=== PATIENT | female | born 1940 | race Hispanic/Latino ===

== ENCOUNTER 2017-10-09 12:24 | Observation (INO) | payer MEDICARE ==
[~2017-10-09] VITALS: Ht 162.6 cm; Wt 56.4 kg
[2017-10-09] MEDS ORDERED: CEFEPIME HCL 1 GM VIAL ONE (13:10)
[2017-10-09] MEDS ORDERED: ENOXAPARIN SODIUM 30 MG/0.3 ML SQ ONE (13:29)
[2017-10-09] MEDS ORDERED: METHYLPREDNISOLONE SOD SUCC 40MG/ML 1ML ONE (13:29)
[2017-10-09 13:30] LABS: CREATININE 0.9 mg/dL (0.5-1.5); POTASSIUM 4.6 mmol/L (3.5-5.1)
[2017-10-09 13:35] LABS: ALBUMIN 2.7 g/dL (3.5-5.0); BILIRUBIN,DIRECT 0.1 mg/dL (0.0-0.3); BILIRUBIN,TOTAL 0.4 mg/dL (0.2-1.0); TOTAL PROTEIN, SERUM 6.9 g/dL (6.0-8.3)
[2017-10-09 13:39] LABS: BASOPHILS % (AUTO) 0.8 % (0.0-5.0); EOSINOPHILS % (AUTO) 1.9 % (0.0-8.0); HEMATOCRIT 34.8 % (36-48); MEAN CORPUSCULAR HEMOGLOBIN 28.3 pg (27.0-33.0); MEAN CORPUSCULAR VOLUME 85.8 fL (79-99); MONOCYTES % (AUTO) 8.6 % (3.0-13.0); NEUTROPHILS % (AUTO) 66.7 % (40.0-77.0); PLATELET COUNT (AUTO) 517 K/uL (130-400); RED BLOOD CELL COUNT(AUTO) 4.05 MIL/uL (4.00-5.50); RED CELL DISTRIBUTION WIDTH 15.9 % (11.0-15.5); WHITE BLOOD COUNT (AUTO) 12.6 K/uL (4.8-10.8)
[2017-10-09] MEDS ORDERED: IPRATROPIUM/ALBUTEROL SULFATE 3 ML SOLUTION IH ONE (13:39)
[2017-10-09] MEDS ORDERED: ONDANSETRON HCL 4 MG/2 ML VIAL IVP PRN (13:45)
[2017-10-09] MEDS ORDERED: ACETAMINOPHEN 325 MG TAB PO PRN (13:45)
[2017-10-09] MEDS ORDERED: 1/2 NORMAL SALINE 1,000 ML IV ONE (15:41)
[2017-10-09] MEDS ORDERED: ACETYLCYSTEINE 20% 200MG/ML 4ML VIAL ONE (18:24)
[2017-10-09] MEDS: IPRATROPIUM/ALBUTEROL SULFATE 3 ML SOLUTION IH SCH ×2 (18:29→23:25)
[2017-10-09] MEDS: ACETYLCYSTEINE 20% 200MG/ML 4ML VIAL IH SCH ×2 (18:29→23:25)
[2017-10-09] MEDS ORDERED: IPRATROPIUM 0.5 MG/2.5 ML INH IH ONE (18:39)
[2017-10-09] MEDS ORDERED: ALBUTEROL SULFATE 0.083% 2.5 MG/3 ML INH IH ONE (18:40)
[2017-10-09] MEDS: FAMOTIDINE 20MG TAB 20 MG TAB PO SCH (21:00)
[2017-10-09] MEDS: CEFEPIME HCL 1 GM VIAL IVP SCH (22:00)
[2017-10-09] MEDS: METHYLPREDNISOLONE SOD SUCC 125MG/2ML VIAL IVP SCH (22:00)
[2017-10-09] MEDS ORDERED: DEXTROSE 50%-WATER 50 ML DISP.SYRIN IV PRN (22:45)
[2017-10-09] MEDS ORDERED: GLUCAGON 1MG KIT 1 MG ML IM PRN (22:45)
[2017-10-09] MEDS ORDERED: 1/2 NORMAL SALINE 1,000 ML IV SCH (22:45)
[2017-10-09 23:43] VITALS: BP 155/67
[2017-10-10] MEDS ORDERED: MONT10TA21 PO (00:20)
[2017-10-10] MEDS ORDERED: FENT100PAT TD ×2 (00:20→03:29)
[2017-10-10] MEDS ORDERED: RANI150C4 PO (00:20)
[2017-10-10] MEDS ORDERED: PANT40TA25 PO (00:20)
[2017-10-10] MEDS ORDERED: FAMO-136 PO (00:20)
[2017-10-10] MEDS ORDERED: INSLAN SQ (00:20)
[2017-10-10] MEDS ORDERED: LUBI24CA2 PO (00:20)
[2017-10-10] MEDS ORDERED: METO-408 PO (00:20)
[2017-10-10] MEDS ORDERED: PRED20TA3 PO (00:20)
[2017-10-10] MEDS ORDERED: NAPR-1023 PO (00:20)
[2017-10-10] MEDS ORDERED: INSU200I SQ (00:20)
[2017-10-10] MEDS ORDERED: VALS160T2 PO (00:20)
[2017-10-10] MEDS ORDERED: DIGO-44 PO (00:20)
[2017-10-10] MEDS ORDERED: MIRALAX PO (00:20)
[2017-10-10] MEDS ORDERED: ALEN70TA47 PO (00:20)
[2017-10-10] MEDS ORDERED: BUPR-87 PO (00:20)
[2017-10-10] MEDS ORDERED: EZET10 PO (00:20)
[2017-10-10] MEDS ORDERED: DULA1.5P SQ (00:20)
[2017-10-10] MEDS ORDERED: METF500T6 PO (00:20)
[2017-10-10] MEDS ORDERED: HYDR-4381 PO (00:26)
[2017-10-10] MEDS ORDERED: HYDROCODONE/ACETAMINOPHEN 10/325 MG TAB PO PRN (00:30)
[2017-10-10] MEDS ORDERED: FENTANYL 100 MCG/HR PATCH TD SCH ×2 (00:30→16:00)
[2017-10-10] MEDS: METHYLPREDNISOLONE SOD SUCC 125MG/2ML VIAL IVP SCH ×2 (03:45→09:21)
[2017-10-10] MEDS: CEFEPIME HCL 1 GM VIAL IVP SCH ×2 (03:45→09:20)
[2017-10-10 04:00] VITALS: BP 121/59
[2017-10-10 05:02] LABS: HEMATOCRIT 34.1 % (36-48); MEAN CORPUSCULAR HEMOGLOBIN 28.6 pg (27.0-33.0); MEAN CORPUSCULAR HGB CONC 33.3 g/dL (32.0-36.0); PLATELET COUNT (AUTO) 561 K/uL (130-400); RED BLOOD CELL COUNT(AUTO) 3.97 MIL/uL (4.00-5.50); RED CELL DISTRIBUTION WIDTH 15.9 % (11.0-15.5); WHITE BLOOD COUNT (AUTO) 14.3 K/uL (4.8-10.8)
[2017-10-10 05:31] LABS: ALBUMIN 2.5 g/dL (3.5-5.0); BILIRUBIN,DIRECT 0.1 mg/dL (0.0-0.3); BILIRUBIN,TOTAL 0.3 mg/dL (0.2-1.0); CREATININE 1.3 mg/dL (0.5-1.5); POTASSIUM 4.1 mmol/L (3.5-5.1); TOTAL PROTEIN, SERUM 6.9 g/dL (6.0-8.3)
[2017-10-10] MEDS: INSULIN LISPRO 100 UNIT/ML 3ML SQ SCH ×3 (06:37→17:24)
[2017-10-10] MEDS: ACETYLCYSTEINE 20% 200MG/ML 4ML VIAL IH SCH ×2 (06:44→13:20)
[2017-10-10] MEDS: IPRATROPIUM/ALBUTEROL SULFATE 3 ML SOLUTION IH SCH ×2 (06:44→13:20)
[2017-10-10] MEDS ORDERED: ALENDRONATE SODIUM 35 MG TAB PO SCH ×2 (07:30→07:54)
[2017-10-10 08:00] VITALS: BP 134/75
[2017-10-10] MEDS ORDERED: GUAIFENESIN-CODEINE 5 ML SYRUP PO PRN (08:00)
[2017-10-10] MEDS ORDERED: BUPROPION HCL 150 MG TABLET.SA PO SCH (09:00)
[2017-10-10] MEDS ORDERED: LOSARTAN 100 MG TABLET PO SCH (09:00)
[2017-10-10] MEDS ORDERED: ENOXAPARIN SODIUM 30 MG/0.3 ML SQ SCH (09:00)
[2017-10-10] MEDS ORDERED: EZETIMIBE 10 MG TAB PO SCH (09:00)
[2017-10-10] MEDS ORDERED: FAMOTIDINE 20MG TAB 20 MG TAB PO SCH ×2 (09:00)
[2017-10-10] MEDS ORDERED: METOPROLOL TARTRATE 25 MG TAB PO SCH (09:00)
[2017-10-10] MEDS ORDERED: PANTOPRAZOLE SODIUM 40 MG TABLET.DR PO SCH (09:00)
[2017-10-10] MEDS ORDERED: NAPROXEN 500 MG TABLET PO SCH (09:00)
[2017-10-10] MEDS: FAMOTIDINE 20MG TAB 20 MG TAB PO SCH (09:00)
[2017-10-10] MEDS ORDERED: POLYETHYLENE GLYCOL 3350 17 GM POWD.PACK PO SCH (09:00)
[2017-10-10] MEDS: LUBIPROSTONE 24 MCG CAP PO SCH ×2 (09:23→17:15)
[2017-10-10] MEDS: METFORMIN HCL 500 MG TABLET PO SCH ×2 (09:23→17:15)
[2017-10-10 12:00] VITALS: BP 127/57
[2017-10-10 16:00] VITALS: BP 133/69
[2017-10-10] MEDS ORDERED: FENTANYL 25 MCG/HR PATCH TD SCH (16:00)
[2017-10-10] MEDS ORDERED: MONTELUKAST SODIUM 10 MG TAB PO SCH (21:00)
[2017-10-10] MEDS ORDERED: DIGOXIN 125 MCG TABLET PO SCH (21:00)
[2017-10-10] MEDS ORDERED: INSULIN GLARGINE 100 UNITS/ML 10 ML VIAL SQ SCH (21:00)
[2017-10-13] MEDS ORDERED: Dulaglutide (Trulicity) 1.5 MG SQ SCH (09:00)
== END 2017-10-10 18:30 ==
LOC: EDH 12:24 → EDHIP 12:54 → 3AH 22:01
PROVIDERS: ADMIT Internal Medicine; ATTEND Internal Medicine
DX: J44.1 Chronic obstructive pulmonary disease with (acute) exacerbation (principal); F03.90 Unspecified dementia, unspecified severity, without behavioral disturbance, psychotic disturbance, mood disturbance, and anxiety; E78.5 Hyperlipidemia, unspecified; E11.9 Type 2 diabetes mellitus without complications; I10 Essential (primary) hypertension; G89.29 Other chronic pain; M54.9 Dorsalgia, unspecified; Z95.0 Presence of cardiac pacemaker; F17.210 Nicotine dependence, cigarettes, uncomplicated; Z79.899 Other long term (current) drug therapy
CPT/HCPCS: 36415 ×2; 71045; 80048; 80053; 80076 ×2; 82947; 82948 ×2; 85025; 85027; 94640 ×5; 94664; 96372; 96374; 96375; 96376; 99285; A4218 ×2; G0378 ×30; J0692 ×3; J1650 ×2; J2920; J2930 ×2; J7608 ×4

== ENCOUNTER 2017-11-06 19:24 | Inpatient (IN) | payer MEDICARE ==
[~2017-11-06] VITALS: Ht 162.6 cm; Wt 54.5 kg
[~2017-11-06 19:24] MED LIST: ALEN70TA47 PO; BUPR-87 PO; DIGO-44 PO; DULA1.5P SQ; EZET10 PO; FAMO-136 PO; FENT100PAT TD; HYDR-4381 PO; INSLAN SQ; INSU200I SQ; LUBI24CA2 PO; METF500T6 PO; METO-408 PO; MIRALAX PO; MONT10TA21 PO; NAPR-1023 PO; PANT40TA25 PO; RANI150C4 PO; VALS160T2 PO
[2017-11-06 19:58] LABS: BASOPHILS % (AUTO) 0.5 % (0.0-5.0); EOSINOPHILS % (AUTO) 0.6 % (0.0-8.0); LYMPHOCYTES % (AUTO) 11.1 % (21.0-51.0); MEAN CORPUSCULAR HEMOGLOBIN 28.6 pg (27.0-33.0); MEAN CORPUSCULAR HGB CONC 33.6 g/dL (32.0-36.0); MONOCYTES % (AUTO) 10.4 % (3.0-13.0); NEUTROPHILS % (AUTO) 77.4 % (40.0-77.0); PLATELET COUNT (AUTO) 449 K/uL (130-400); RED BLOOD CELL COUNT(AUTO) 4.23 MIL/uL (4.00-5.50); RED CELL DISTRIBUTION WIDTH 16.5 % (11.0-15.5); WHITE BLOOD COUNT (AUTO) 18.6 K/uL (4.8-10.8)
[2017-11-06 20:09] LABS: INR 0.98 (0.85-1.15); PARTIAL THROMBOPLASTIN TIME 25.4 SEC (26.3-35.5); PROTHROMBIN TIME 10.3 SEC (9.6-11.6)
[2017-11-06 20:10] LABS: CREATININE 0.7 mg/dL (0.5-1.5); POTASSIUM 4.1 mmol/L (3.5-5.1)
[2017-11-06 20:25] LABS: ALBUMIN 2.6 g/dL (3.5-5.0); BILIRUBIN,TOTAL 0.3 mg/dL (0.2-1.0); CREATINE KINASE MB 1.2 ng/mL (0.5-3.6); TOTAL PROTEIN, SERUM 6.9 g/dL (6.0-8.3)
[2017-11-06] MEDS ORDERED: ONDANSETRON HCL 4 MG/2 ML VIAL ONE (20:58)
[2017-11-06] MEDS ORDERED: SODIUM CHLORIDE 0.9% 1000ML 1,000 ML IV ONE (20:59)
[2017-11-06] MEDS ORDERED: KETOROLAC TROMETHAMINE 30MG/ML ONE (21:49)
[2017-11-06] MEDS ORDERED: MEROPENEM 1 GM VIAL ONE (22:02)
[2017-11-06 23:19] LABS: APPEARANCE,URINE Clear (CLEAR); BILIRUBIN,URINE Negative (NEGATIVE); COLOR,URINE Yellow (YELLOW); GLUCOSE, URINE (UA) Negative (NEGATIVE); KETONES,URINE Negative (NEGATIVE); LEUKOCYTE ESTERASE ,URINE Negative (NEGATIVE); NITRATE,URINE Negative (NEGATIVE); OCCULT BLOOD,URINE Negative (NEGATIVE); PROTEIN,URINE Negative (NEGATIVE)
[2017-11-07] MEDS ORDERED: METRONIDAZOLE 500MG/100ML BAG 100 ML ONE ×2 (02:51→13:40)
[2017-11-07] MEDS ORDERED: LEVOFLOXACIN 500 MG/D5W 100 ML 100 ML ONE (02:51)
[2017-11-07] MEDS ORDERED: METRONIDAZOLE 500MG/100ML BAG 100 ML IVPB SCH (06:00)
[2017-11-07 06:45] LABS: BASOPHILS % (AUTO) 0.5 % (0.0-5.0); EOSINOPHILS % (AUTO) 0.9 % (0.0-8.0); HEMATOCRIT 31.4 % (36-48); LYMPHOCYTES % (AUTO) 15.1 % (21.0-51.0); MEAN CORPUSCULAR HEMOGLOBIN 28.5 pg (27.0-33.0); MEAN CORPUSCULAR HGB CONC 33.6 g/dL (32.0-36.0); MEAN CORPUSCULAR VOLUME 84.8 fL (79-99); MONOCYTES % (AUTO) 11.4 % (3.0-13.0); NEUTROPHILS % (AUTO) 72.1 % (40.0-77.0); PLATELET COUNT (AUTO) 380 K/uL (130-400); RED CELL DISTRIBUTION WIDTH 16.5 % (11.0-15.5); WHITE BLOOD COUNT (AUTO) 13.9 K/uL (4.8-10.8)
[2017-11-07 06:51] LABS: CREATININE 0.9 mg/dL (0.5-1.5); POTASSIUM 4.4 mmol/L (3.5-5.1)
[2017-11-07 09:50] VITALS: BP 129/48
[2017-11-07] MEDS ORDERED: HYDROCODONE/ACETAMINOPHEN 10/325 MG TAB ONE (11:57)
[2017-11-07] MEDS: HYDROCODONE/ACETAMINOPHEN 10/325 MG TAB PO SCH (11:59)
[2017-11-07] MEDS ORDERED: TIOT18CA3 IH (12:15)
[2017-11-07] MEDS ORDERED: INSU100I3 SQ (12:15)
[2017-11-07 13:05] VITALS: BP 106/42
[2017-11-07] MEDS: METRONIDAZOLE 500MG/100ML BAG 100 ML IVPB SCH ×2 (13:42→23:19)
[2017-11-07 17:24] VITALS: BP 109/53
[2017-11-07 19:27] VITALS: BP 125/61
[2017-11-07] MEDS ORDERED: INSULIN GLARGINE 100 UNITS/ML 10 ML VIAL SQ SCH (21:00)
[2017-11-07] MEDS: BUPROPION HCL 150 MG TABLET.SA PO SCH (23:26)
[2017-11-07] MEDS: MONTELUKAST SODIUM 10 MG TAB PO SCH (23:27)
[2017-11-07 23:29] VITALS: BP 106/47
[2017-11-07] MEDS ORDERED: FENT25PAT TD (23:53)
[2017-11-08] MEDS ORDERED: DEXTROSE 50%-WATER 50 ML DISP.SYRIN IV PRN (01:00)
[2017-11-08] MEDS ORDERED: GLUCAGON 1MG KIT 1 MG ML IM PRN (01:00)
[2017-11-08] MEDS: LEVOFLOXACIN 250 MG/D5W 50ML 50 ML IVPB SCH (02:48)
[2017-11-08 04:00] VITALS: BP 110/52
[2017-11-08 04:42] LABS: HEMATOCRIT 26.8 % (36-48); MEAN CORPUSCULAR HGB CONC 35.2 g/dL (32.0-36.0); MEAN CORPUSCULAR VOLUME 85.3 fL (79-99); PLATELET COUNT (AUTO) 326 K/uL (130-400); RED BLOOD CELL COUNT(AUTO) 3.15 MIL/uL (4.00-5.50); RED CELL DISTRIBUTION WIDTH 16.5 % (11.0-15.5); WHITE BLOOD COUNT (AUTO) 8.7 K/uL (4.8-10.8)
[2017-11-08 05:07] LABS: CREATININE 0.6 mg/dL (0.5-1.5); MAN.DIFF COMMENT-IMPRESSION MANUAL DIFFERENTIAL; PLATELET MORPHOLOGY COMMENT ADEQUATE; POTASSIUM 3.8 mmol/L (3.5-5.1)
[2017-11-08 05:18] LABS: BAND NEUTROPHILS % (MANUAL) 28 % (0-2); EOSINOPHILS % (MANUAL) 2 % (1-6); LYMPHOCYTES % (MANUAL) 24 % (22-44); MONOCYTES % (MANUAL) 4 % (2-9); SEGMENTED NEUTROPHILS % 42 % (40-70)
[2017-11-08] MEDS: INSULIN LISPRO 100 UNIT/ML 3ML SQ SCH ×2 (06:29→16:30)
[2017-11-08] MEDS: METRONIDAZOLE 500MG/100ML BAG 100 ML IVPB SCH ×3 (06:47→21:52)
[2017-11-08] MEDS: FENTANYL 25 MCG/HR PATCH TD SCH (07:27)
[2017-11-08] MEDS: FENTANYL 100 MCG/HR PATCH TD SCH (07:27)
[2017-11-08 08:07] VITALS: BP 91/44
[2017-11-08] MEDS ORDERED: SODIUM CHLORIDE 0.9% 1000ML 1,000 ML IV SCH (08:15)
[2017-11-08] MEDS: SPIRIVA IH SCH (09:00)
[2017-11-08] MEDS: HYDROCODONE/ACETAMINOPHEN 10/325 MG TAB PO SCH ×2 (09:00→23:24)
[2017-11-08] MEDS: BUPROPION HCL 150 MG TABLET.SA PO SCH ×2 (09:34→20:04)
[2017-11-08] MEDS: POLYETHYLENE GLYCOL 3350 17 GM POWD.PACK PO SCH (09:35)
[2017-11-08] MEDS: PANTOPRAZOLE SODIUM 40 MG TABLET.DR PO SCH (09:35)
[2017-11-08] MEDS: FAMOTIDINE 20MG TAB 20 MG TAB PO SCH (09:35)
[2017-11-08 11:19] VITALS: BP 116/66
[2017-11-08] MEDS: ACETAMINOPHEN 325 MG TAB PO PRN (15:10)
[2017-11-08 15:52] VITALS: BP 125/57
[2017-11-08 19:10] VITALS: BP 98/45
[2017-11-08] MEDS: MONTELUKAST SODIUM 10 MG TAB PO SCH (20:04)
[2017-11-08] MEDS: DEXTROSE 10%-WATER 1,000 ML IV SCH (20:05)
[2017-11-08] MEDS: INSULIN GLARGINE 100 UNITS/ML 10 ML VIAL SQ SCH (20:19)
[2017-11-08 23:16] VITALS: BP 120/58
[2017-11-09] MEDS: LEVOFLOXACIN 250 MG/D5W 50ML 50 ML IVPB SCH (01:32)
[2017-11-09 03:30] VITALS: BP 109/61
[2017-11-09 04:31] LABS: MEAN CORPUSCULAR HGB CONC 34.1 g/dL (32.0-36.0); MEAN CORPUSCULAR VOLUME 85.1 fL (79-99); PLATELET COUNT (AUTO) 353 K/uL (130-400); RED BLOOD CELL COUNT(AUTO) 3.17 MIL/uL (4.00-5.50); RED CELL DISTRIBUTION WIDTH 16.3 % (11.0-15.5); WHITE BLOOD COUNT (AUTO) 7.5 K/uL (4.8-10.8)
[2017-11-09 04:40] LABS: ALBUMIN 1.9 g/dL (3.5-5.0); BILIRUBIN,TOTAL 0.1 mg/dL (0.2-1.0); CREATININE 0.6 mg/dL (0.5-1.5); POTASSIUM 3.4 mmol/L (3.5-5.1); TOTAL PROTEIN, SERUM 5.4 g/dL (6.0-8.3)
[2017-11-09] MEDS: INSULIN LISPRO 100 UNIT/ML 3ML SQ SCH ×2 (05:44→17:20)
[2017-11-09] MEDS: METRONIDAZOLE 500MG/100ML BAG 100 ML IVPB SCH ×3 (06:05→21:18)
[2017-11-09 08:00] VITALS: BP 112/64
[2017-11-09] MEDS: SPIRIVA IH SCH (09:00)
[2017-11-09] MEDS: POLYETHYLENE GLYCOL 3350 17 GM POWD.PACK PO SCH (09:09)
[2017-11-09] MEDS: BUPROPION HCL 150 MG TABLET.SA PO SCH ×2 (09:09→21:18)
[2017-11-09] MEDS: PANTOPRAZOLE SODIUM 40 MG TABLET.DR PO SCH (09:09)
[2017-11-09] MEDS: FAMOTIDINE 20MG TAB 20 MG TAB PO SCH (09:09)
[2017-11-09 11:00] VITALS: BP 123/61
[2017-11-09] MEDS: HYDROCODONE/ACETAMINOPHEN 10/325 MG TAB PO SCH (14:44)
[2017-11-09 16:00] VITALS: BP 109/51
[2017-11-09 20:00] VITALS: BP 142/64
[2017-11-09] MEDS: ZOLPIDEM TARTRATE 5 MG TAB PO SCH (21:17)
[2017-11-09] MEDS: MONTELUKAST SODIUM 10 MG TAB PO SCH (21:17)
[2017-11-09] MEDS: INSULIN GLARGINE 100 UNITS/ML 10 ML VIAL SQ SCH (21:27)
[2017-11-10] VITALS (7 sets, daily range): BP systolic 119–142; BP diastolic 60–73
[2017-11-10] MEDS: LEVOFLOXACIN 250 MG/D5W 50ML 50 ML IVPB SCH (02:27)
[2017-11-10 05:15] LABS: HEMATOCRIT 27.3 % (36-48); MEAN CORPUSCULAR HEMOGLOBIN 29.8 pg (27.0-33.0); MEAN CORPUSCULAR HGB CONC 34.8 g/dL (32.0-36.0); MEAN CORPUSCULAR VOLUME 85.6 fL (79-99); PLATELET COUNT (AUTO) 358 K/uL (130-400); RED BLOOD CELL COUNT(AUTO) 3.19 MIL/uL (4.00-5.50); RED CELL DISTRIBUTION WIDTH 16.3 % (11.0-15.5); WHITE BLOOD COUNT (AUTO) 7.3 K/uL (4.8-10.8)
[2017-11-10 05:43] LABS: ALBUMIN 1.9 g/dL (3.5-5.0); BILIRUBIN,TOTAL 0.1 mg/dL (0.2-1.0); CREATININE 0.6 mg/dL (0.5-1.5); POTASSIUM 3.8 mmol/L (3.5-5.1); TOTAL PROTEIN, SERUM 5.4 g/dL (6.0-8.3)
[2017-11-10] MEDS: METRONIDAZOLE 500MG/100ML BAG 100 ML IVPB SCH ×3 (06:02→21:06)
[2017-11-10] MEDS: INSULIN LISPRO 100 UNIT/ML 3ML SQ SCH ×2 (06:02→16:30)
[2017-11-10] MEDS: SPIRIVA IH SCH (09:00)
[2017-11-10] MEDS: HYDROCODONE/ACETAMINOPHEN 10/325 MG TAB PO SCH (09:21)
[2017-11-10] MEDS: BUPROPION HCL 150 MG TABLET.SA PO SCH ×2 (09:21→21:03)
[2017-11-10] MEDS: FAMOTIDINE 20MG TAB 20 MG TAB PO SCH (09:21)
[2017-11-10] MEDS: POLYETHYLENE GLYCOL 3350 17 GM POWD.PACK PO SCH (09:22)
[2017-11-10] MEDS: PANTOPRAZOLE SODIUM 40 MG TABLET.DR PO SCH (09:22)
[2017-11-10] MEDS: ZOLPIDEM TARTRATE 5 MG TAB PO SCH (19:51)
[2017-11-10] MEDS: INSULIN GLARGINE 100 UNITS/ML 10 ML VIAL SQ SCH (21:02)
[2017-11-10] MEDS: MONTELUKAST SODIUM 10 MG TAB PO SCH (21:03)
[2017-11-10] MEDS: ACETAMINOPHEN 325 MG TAB PO PRN (21:04)
[2017-11-11] MEDS: LEVOFLOXACIN 250 MG/D5W 50ML 50 ML IVPB SCH (01:25)
[2017-11-11 03:08] VITALS: BP 144/66
[2017-11-11] MEDS: METRONIDAZOLE 500MG/100ML BAG 100 ML IVPB SCH ×3 (05:41→22:05)
[2017-11-11] MEDS: FENTANYL 100 MCG/HR PATCH TD SCH (05:45)
[2017-11-11] MEDS: FENTANYL 25 MCG/HR PATCH TD SCH (05:45)
[2017-11-11] MEDS: INSULIN LISPRO 100 UNIT/ML 3ML SQ SCH ×2 (06:11→16:23)
[2017-11-11 08:00] VITALS: BP 143/51
[2017-11-11] MEDS: SPIRIVA IH SCH (08:52)
[2017-11-11] MEDS: PANTOPRAZOLE SODIUM 40 MG TABLET.DR PO SCH (08:53)
[2017-11-11] MEDS: FAMOTIDINE 20MG TAB 20 MG TAB PO SCH (08:53)
[2017-11-11] MEDS: BUPROPION HCL 150 MG TABLET.SA PO SCH ×2 (08:53→22:05)
[2017-11-11] MEDS: POLYETHYLENE GLYCOL 3350 17 GM POWD.PACK PO SCH (08:53)
[2017-11-11] MEDS: HYDROCODONE/ACETAMINOPHEN 10/325 MG TAB PO SCH (08:53)
[2017-11-11 11:00] VITALS: BP 120/66
[2017-11-11] MEDS: DEXTROSE 10%-WATER 1,000 ML IV SCH (13:06)
[2017-11-11 16:00] VITALS: BP 135/61
[2017-11-11 20:00] VITALS: BP 146/68
[2017-11-11] MEDS: ZOLPIDEM TARTRATE 5 MG TAB PO SCH (21:00)
[2017-11-11] MEDS: MONTELUKAST SODIUM 10 MG TAB PO SCH (22:05)
[2017-11-11] MEDS: INSULIN GLARGINE 100 UNITS/ML 10 ML VIAL SQ SCH (22:08)
[2017-11-12] VITALS: BP 131/58
[2017-11-12] MEDS: LEVOFLOXACIN 250 MG/D5W 50ML 50 ML IVPB SCH (02:12)
[2017-11-12 04:00] VITALS: BP 130/50
[2017-11-12] MEDS: METRONIDAZOLE 500MG/100ML BAG 100 ML IVPB SCH (05:04)
[2017-11-12] MEDS: INSULIN LISPRO 100 UNIT/ML 3ML SQ SCH (06:08)
[2017-11-12 07:30] VITALS: BP 132/57
[2017-11-12] MEDS: SPIRIVA IH SCH (09:00)
[2017-11-12] MEDS: BUPROPION HCL 150 MG TABLET.SA PO SCH (10:15)
[2017-11-12] MEDS: POLYETHYLENE GLYCOL 3350 17 GM POWD.PACK PO SCH (10:15)
[2017-11-12] MEDS: FAMOTIDINE 20MG TAB 20 MG TAB PO SCH (10:15)
[2017-11-12] MEDS: HYDROCODONE/ACETAMINOPHEN 10/325 MG TAB PO SCH (10:15)
[2017-11-12] MEDS: PANTOPRAZOLE SODIUM 40 MG TABLET.DR PO SCH (10:15)
[2017-11-12 11:00] VITALS: BP 160/88
== END 2017-11-12 14:30 | disposition home or self-care (01) | DRG 871 ==
LOC: EDH 19:24 → OBSVTOIN 11-07 00:11 → EDHIP 11-07 00:11 → 3DH 11-07 17:07
PROVIDERS: ADMIT Internal Medicine; ATTEND Internal Medicine
DX: A41.9 Sepsis, unspecified organism (principal); E43 Unspecified severe protein-calorie malnutrition; E86.0 Dehydration; E11.9 Type 2 diabetes mellitus without complications; D64.9 Anemia, unspecified; J44.1 Chronic obstructive pulmonary disease with (acute) exacerbation; K57.92 Diverticulitis of intestine, part unspecified, without perforation or abscess without bleeding; F03.90 Unspecified dementia, unspecified severity, without behavioral disturbance, psychotic disturbance, mood disturbance, and anxiety; E78.5 Hyperlipidemia, unspecified; K76.0 Fatty (change of) liver, not elsewhere classified; K52.9 Noninfective gastroenteritis and colitis, unspecified; I10 Essential (primary) hypertension; G89.29 Other chronic pain; E87.6 Hypokalemia; M54.9 Dorsalgia, unspecified; Z88.0 Allergy status to penicillin; Z88.8 Allergy status to other drugs, medicaments and biological substances; Z88.1 Allergy status to other antibiotic agents; Z91.010 Allergy to peanuts; Z95.0 Presence of cardiac pacemaker; Z86.73 Personal history of transient ischemic attack (TIA), and cerebral infarction without residual deficits
CPT/HCPCS: 36415; 74176; 76705; 80048; 80053; 81003; 82553; 82948; 83605; 83690; 84484; 85025; 85027; 85610; 85730; 87040; 87507; 93005; J1885; J1956; J2185; J2405; J3490; J7030